=== PATIENT | female | born 1965 ===

== ENCOUNTER 2017-07-01 13:23 | Emergency (ER) | payer BC ==
[2017-07-01] MEDS ORDERED: Sodium Chloride 0.9% 1,000 ML IV SCH (15:00)
[2017-07-01] MEDS ORDERED: ceFAZolin 1 GM in Sodium Chloride 0.9% 100 ML IVPB ONE (15:00)
[2017-07-01 15:11] LABS: BASO % 0.4 % (0.0-2.0); EOS % 0.4 % (0.0-4.0); HEMOGLOBIN 12.4 g/dL (12.0-16.0); LYMPH # 0.5 K/uL (1.0-4.3); LYMPH % 11.2 % (20.0-40.0); MEAN CELL VOLUME 96.3 fl (81.0-99.0); MEAN CORPUSCULAR HEMOGLOBIN 32.3 pg (27.0-31.0); MEAN CORPUSCULAR HGB CONC 33.5 g/dL (33.0-37.0); MEAN PLATELET VOLUME 8.9 fl (7.2-11.7); MONO # 0.2 K/uL (0.0-0.8); MONO % 3.8 % (0.0-10.0); NEUT % 84.2 % (50.0-75.0); NRBC % 0.1 % (0.0-0.0); RBC 3.84 Mil/uL (3.80-5.20); RED CELL DISTRIBUTION WIDTH 13.7 % (11.5-14.5); WHITE BLOOD COUNT 4.8 K/uL (4.8-10.8)
[2017-07-01] MEDS ORDERED: Vancomycin 1 g Inj ONE (15:13)
[2017-07-01 15:20] LABS: ALB/GLOB RATIO 0.9 (1.0-2.1); ALBUMIN 4.2 g/dL (3.5-5.0); ALT/SGPT 53 U/L (9-52); AST/SGOT 54 U/L (14-36); BLOOD UREA NITROGEN 17 mg/dl (7-17); CALCIUM 9.6 mg/dL (8.4-10.2); GFR AFRICAN-AMERICAN > 60; GFR NON-AFRICAN AMERICAN > 60
[2017-07-01 15:27] LABS: SQUAMOUS EPITHIAL 2 /hpf (0-5); URINE BILIRUBIN NEGATIVE (NEGATIVE); URINE BLOOD NEGATIVE (NEGATIVE); URINE CLARITY CLEAR (Clear); URINE COLOR YELLOW (YELLOW); URINE GLUCOSE (UA) NEG (Normal); URINE LEUKOCYTE ESTERASE TRACE Leu/uL (Negative); URINE PROTEIN 30 mg/dL (NEGATIVE); URINE UROBILINOGEN 0.2-1.0 mg/dL (0.2-1.0)
--- NOTE | 2017-07-01 16:09 | RAD ---
PROCEDURE: Right Hand Radiographs. HISTORY: infect/ ro osteo COMPARISON: None. FINDINGS: BONES: Bone alignment is normal. There is no acute fracture or bone destruction. There is no evidence for bone erosion. JOINTS: Normal. SOFT TISSUES: There is mild dorsal soft tissue swelling. OTHER FINDINGS: None. IMPRESSION: Mild dorsal soft tissue swelling which may represent cellulitis in the appropriate clinical setting. No radiographic evidence for osteomyelitis.
--- NOTE | 2017-07-01 17:24 | ED PDOC ---
HPI: Skin/Bite Injury Time Seen by Provider: 07/01/17 13:50 Chief Complaint (Nursing): Abnormal Skin Integrity Chief Complaint (Provider): Cellulitis History Per: Patient Past Medical History Reviewed: Historical Data Vital Signs: Last Vital Signs Temp 98.0 F 07/01/17 17:30 Pulse 81 07/01/17 17:30 Resp 14 07/01/17 17:30 BP 125/75 07/01/17 17:30 Pulse Ox 98 07/01/17 20:10 - Family History Family History: States: Unknown Family Hx - Home Medications Home Medications: Ambulatory Orders Medication Instructions Recorded Alprazolam [Xanax] 0.5 mg PO HS PRN 07/01/17 Cephalexin [cephalexin] 500 mg PO QID #40 cap 07/01/17 Levothyroxine [Synthroid] 75 mcg PO DAILY 07/01/17 Omeprazole [Omeprazole] 40 mg PO DAILY 07/01/17 Sulfamethoxazole/Trimethoprim 1 tab PO BID #20 tab 07/01/17 [Bactrim DS 800 mg-160 mg] azaTHIOprine [Imuran] 50 mg PO Q12 07/01/17 predniSONE [predniSONE Tab] 10 mg PO DAILY 07/01/17 - Allergies Allergies/Adverse Reactions: Allergies Allergy/AdvReac Type Severity Reaction Status Date / Time No Known Allergies Allergy Verified 07/01/17 13:38 Review of Systems ROS Statement: Except As Marked, All Systems Reviewed And Found Negative Skin: Positive for: Other (cellulitis and induration) Physical Exam - Reviewed Nursing Documentation Reviewed: Yes Vital Signs Reviewed: Yes - Physical Exam Appears: Positive for: Well, Non-toxic, No Acute Distress. Negative for: Uncomfortable Head Exam: Positive for: ATRAUMATIC, NORMAL INSPECTION, NORMOCEPHALIC Skin: Negative for: Normal Color (Pt has a cellulitic patch at the MCP of the right third finger; pt maintains full ROM and sensory appreciation; pt is vascularily intact) Cardiovascular/Chest: Positive for: Regular Rate, Rhythm. Negative for: Chest Non Tender, Edema, Gallop, Bradycardia, Tachycardia Respiratory: Positive for: Normal Breath Sounds. 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 and with Ortho Hand Pt has no osteomyl and no white count pt is stable for discharge and PO abx pt will follow up with ortho hand in 3-4 days Disposition - Clinical Impression Clinical Impression: Cellulitis, Cellulitis and abscess of hand, except fingers and thumb - Patient ED Disposition Is Patient to be Admitted: No Discussed With Dr.: Dillon Da Silva Comment: Case also discussed with pt handcrew foreman, Dr Tricia Moses Doctor Will See Patient In The: Office Counseled Patient/Family Regarding: Studies Performed, Diagnosis, Need For Followup, Rx Given - Disposition Referrals: Dillon Da Silva MD [Medical Doctor] - Disposition: Routine/Home Disposition Time: 20:10 Condition: STABLE Additional Instructions: Follow up with Dr Da Silva Prescriptions: Cephalexin [cephalexin] 500 mg PO QID #40 cap Sulfamethoxazole/Trimethoprim [Bactrim DS 800 mg-160 mg] 1 tab PO BID #20 tab Instructions: Cellulitis and Erysipelas (Skin Infections), Cellulitis (Skin Infection), Adult (DC) Forms: [facility] ([place]namese)
[2017-07-01 20:09] VITALS: O2SAT 98
[2017-07-01 21:33] VITALS: BP 124/76; PULSE 70; RESP 18; TEMP 98.4
== END 2017-07-01 21:31 | disposition home or self-care (01) ==
LOC: H.ER 13:23
DX: L02.511 Cutaneous abscess of right hand (principal)
CPT/HCPCS: 73130; 80053; 81003; 81025; 85025; 85651; 87040; 96374; 96375; 99283; J0690; J7040